=== PATIENT | female | born 2000 | race Caucasian/White ===

== ENCOUNTER 2021-04-09 18:56 | Emergency (ER) | payer OTHER ==
[~2021-04-09] VITALS: Ht 167.6 cm; Wt 54.5 kg
[2021-04-09 19:16] VITALS: TEMP 98.1
[2021-04-09 20:50] VITALS: BP 109/75; PULSE 88
[2021-04-10] MEDS ORDERED: CEPHALEXIN500 M1 PO (00:45)
== END 2021-04-09 20:50 | disposition home or self-care (01) ==
LOC: COL.ER 18:56
DX: S91.312A Laceration without foreign body, left foot, initial encounter (principal); F17.290 Nicotine dependence, other tobacco product, uncomplicated; W45.8XXA Other foreign body or object entering through skin, initial encounter; Y92.89 Other specified places as the place of occurrence of the external cause

== ENCOUNTER 2021-12-19 17:07 | Emergency (ER) | payer OTHER ==
[~2021-12-19] VITALS: Ht 170.2 cm; Wt 56.8 kg
[~2021-12-19 17:07] MED LIST: CEPHALEXIN500 M1 PO
[2021-12-19 17:20] VITALS: TEMP 98.1
[2021-12-19] MEDS ORDERED: CEPHALEXIN500 M1 PO (17:32)
[2021-12-19 18:13] VITALS: BP 112/63; PULSE 60
== END 2021-12-19 18:13 | disposition home or self-care (01) ==
LOC: COL.ER 17:07
DX: S41.112A Laceration without foreign body of left upper arm, initial encounter (principal); W25.XXXA Contact with sharp glass, initial encounter; Y93.01 Activity, walking, marching and hiking

== ENCOUNTER → 2022-01-05 | Outpatient (CLI) | payer OTHER ==
[2022-01-05 09:24] VITALS: BP 118/67; PULSE 93; TEMP 99.1
== END ==
LOC: COL.ER 09:16
DX: Z48.02 Encounter for removal of sutures (principal)